=== PATIENT | female | born 1990 | race Caucasian/White ===

== ENCOUNTER 2016-07-29 12:47 | Emergency (ER) | payer MEDICAID ==
[~2016-07-29] VITALS: Ht 157.5 cm; Wt 68.0 kg
[~2016-07-29 12:47] MED LIST: DOXY100T PO; FLAG500T PO
[2016-07-29 12:49] VITALS: BP 127/72; PULSE 94; RESP 20; TEMP 98; O2SAT 98
--- NOTE | 2016-07-29 17:30 | PD ---
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 States that she had similar symptoms like this in the past and was told she had pelvic inflammatory disease. She states that she has some right lower pelvic pain that is not new, has been there since her previous surgeries. Denies any fever, chills , nausea, vomiting, diarrhea, constipation, hematuria. Denies , last menstrual period 1 week ago and she is status post tubal ligation. Abdominal surgeries include appendectomy and C-sections 2. She is sexually active with one partner but is concerned he may be unfaithful. PFSH Past Medical History Asthma: Yes Autoimmune Disease: No Blood Disorders: No Anxiety: Yes Cardiovascular Problems: No Cerebrovascular Accident: Yes (TIA) Developmental Delay: Yes (CEREBRAL PALSY) Diabetes: No Diminished Hearing: No Diverticulitis: Yes (CROHNS DISEASE) Gastrointestinal Disorders: Yes (colitis, crohns) GERD: Yes Genitourinary: Yes Kidney Stones: Yes Neurologic: Yes (mild cp) Psychiatric: Yes Respiratory: Yes (ASTHMA) Immunizations Current: Yes Ulcer: Yes Tetanus Vaccination: > 5 Years Influenza Vaccination: No ?: Not LMP: LAST WEEK Menopausal: No : 3 Para: 2 Miscarriage: 1 Past Surgical History Abdominal Surgery: Yes (laparoscopy, colonoscopy) Appendectomy: Yes Section: Yes Oral Surgery: Yes Thoracic Surgery: Yes (ECHMO) Tonsillectomy: Yes Other Surgery: Yes (ADENOIDECTOMY) Social History Alcohol Use: Yes (ocassionally) Tobacco Use: No Substance Use: No Allergies-Medications (Allergen,Severity, Reaction): Coded Allergies: Morphine (Verified Allergy, Severe, RASH, ITCHING, 07/29/16) Bactrim (Verified Allergy, Intermediate, TONGUE SWELLING, 07/29/16) Keflex (Verified Adverse Reaction, Severe, Dizziness, 07/29/16) Cipro (Verified Adverse Reaction, Intermediate, DIZZY, 07/29/16) Reported Meds & Prescriptions Reported Meds & Active Scripts Active Diflucan (Fluconazole) 150 Mg Tab 150 Mg PO ONCE Doxycycline Hyclate 100 Mg Cap 100 Mg PO BID 14 Days Review of Systems Except as stated in HPI: all other systems reviewed are Neg Physical Exam Narrative GENERAL: Well-nourished and well-developed pleasant patient in no acute distress who is nontoxic appearing. SKIN: Warm and dry. HEAD: Normocephalic and atraumatic. EYES: No injection, drainage, or hyphema noted. PERRLA. EOMI. ENT: No nasal drainage noted. Oropharynx is clear. NECK: Supple and the trachea is midline. CARDIOVASCULAR: Regular rate and rhythm. RESPIRATORY: Breath sounds are equal bilaterally with no accessory muscle use, wheezing, rhonchi, or crackles. GASTROINTESTINAL: Abdomen is soft, non-tender, and nondistended. GENITOURINARY: Normal external genitalia without lesions or erythema. Vaginal vault with yellow thick discharge. Cervical os was closed. Positive cervical motion tenderness. Uterus nontender and nonenlarged. Bilateral adnexa nontender without masses. MUSCULOSKELETAL: No obvious deformities, swelling, cyanosis, or ecchymosis is present throughout the upper and lower extremities. NEUROLOGICAL: Awake, alert, and oriented. Normal speech and gait. Cranial nerves are grossly intact. Data Data Last Documented VS Vital Signs Date Time Temp Pulse Resp B/P Pulse Ox O2 Delivery O2 Flow Rate FiO2 07/29/16 16:48 17 07/29/16 12:49 98.0 94 127/72 98 Room Air Orders Gc And Chlamydia Pcr (07/29/16 17:30) Wet Prep Profile (07/29/16 17:30) Urinalysis - C+S If Indicated (07/29/16 17:30) Ed Urine Pregnancytest Poc (07/29/16 17:30) Urine Culture (07/29/16 17:20) Azithromycin (Zithromax) (07/29/16 18:30) Doxycycline (Vibramycin) (07/29/16 18:30) Labs Laboratory Tests Test 07/29/16 17:20 Urine Color YELLOW Urine Turbidity HAZY Urine pH 6.0 Urine Specific [place] 1.024 Urine Protein TRACE mg/dL Urine Glucose (UA) NEG mg/dL Urine Ketones NEG mg/dL Urine Occult Blood TRACE Urine Nitrite NEG Urine Bilirubin NEG Urine Urobilinogen LESS THAN 2.0 MG/DL Urine Leukocyte Esterase LARGE Urine RBC 17 /hpf Urine WBC 132 /hpf Urine Squamous Epithelial 6 /hpf Cells Urine Transitional Epithelial 2 /hpf Cells Urine Renal Epithelial Cells 1 /hpf Urine Bacteria RARE /hpf Urine Mucus FEW /lpf Urine Yeast (Budding) RARE Microscopic Urinalysis Comment CULTURE INDICATED Clue Cells (Wet Prep) NONE SEEN Vaginal Trichomonas (Wet Prep) NONE SEEN Vaginal Yeast (Wet Prep) PRESENT MDM Medical Decision Making Medical Screen Exam Complete: Yes Emergency Medical Condition: Yes Differential Diagnosis Pelvic inflammatory disease versus urethritis versus cystitis versus BV Narrative Course 26-year-old female presents to the emergency department for evaluation of vaginal discharge and burning with urination. Patient is afebrile, vital signs are stable. Abdominal examination is benign. On pelvic examination she does have vaginal discharge and cervical motion tenderness. She is concerned of possible sexual transmitted infection. We'll treat the patient prophylactically for gonorrhea and chlamydia with Zithromax 1 g and doxycycline as she is allergic to Keflex. Urinalysis shows trace occult blood, large leukocyte esterase, 17 red blood cells, 132 white blood cells, rare bacteria, few mucus, rare yeast. Wet prep shows vaginal yeast. Gonorrhea and Chlamydia is pending. Patient will be prescribed doxycycline 100 mg twice daily for PID for 14 days and Diflucan for yeast. Instructed to follow-up with her PCP or monitoring manager. Patient verbalizes understanding and agreement with treatment plan. Diagnosis Primary Impression: PID (acute pelvic inflammatory disease) Additional Impression: Vaginal yeast infection Referrals: Manager Telemarketing Patient Instructions: General Instructions, Pelvic Inflammatory Disease (ED), Vulvovaginal Candidiasis (ED) Additional Instructions: Take medications as prescribed with food and a full glass of water. Follow-up with your Primary Care Physician or monitoring manager. Return to the ED for any acute worsening of symptoms. Med/Other Pt SpecificInfo: Prescription(s) given Scripts Fluconazole (Diflucan)150 Mg [id number] Mg PO ONCE #1 TAB Ref 0 Prov:Woody Wen MD 07/29/16 Doxycycline Hyclate 100 Mg [id number] Mg PO BID 14 Days Ref 0 Prov:Woody Wen MD 07/29/16 Disposition: 01 DISCHARGE HOME Condition: Stable Janet Kim Jul 29, 2016 17:30
[2016-07-29 17:52] LABS: BACTERIA, URINE RARE /hpf; BLOOD, URINE TRACE (NEG); COMMENT (UR) CULTURE INDICATED; CULTURE IF INDICATED CULTURE INDICATED; GLUCOSE,URINE NEG (NEG); KETONE, URINE NEG (NEG); MUCUS URINE FEW /lpf (OCC); NITRITE,URINE NEG (NEG); RENAL EPITHELIAL CELLS 1 /hpf; SQUAMOUS EPITHELIAL CELL URINE 6 /hpf (0-5); TRANSITIONAL EPI CELLS, URINE 2 /hpf; URINE COLOR YELLOW (YELLW/STRAW)
[2016-07-29] MEDS ORDERED: DIFL150T PO (18:19)
[2016-07-29] MEDS ORDERED: DOXY100C PO ×2 (18:19→18:32)
[2016-07-29] MEDS ORDERED: AZITHROMYCIN 250 MG TAB PO ONE (18:30)
[2016-07-29] MEDS ORDERED: DOXYCYCLINE HYCLATE 100 MG CAP PO ONE (18:30)
[2016-07-29] MEDS ORDERED: DOXY1TAB6 PO (18:33)
[2016-07-29 18:35] VITALS: BP 120/78; TEMP 98
[2016-07-29 19:34] LABS: CHLAMYDIA PCR NOT DETECTED (NOT DETECT); NEISSERIA PCR NOT DETECTED (NOT DETECT)
== END 2016-07-29 18:35 | disposition home or self-care (01) ==
LOC: NEPB 12:47
DX: N73.9 Female pelvic inflammatory disease, unspecified (principal); B96.20 Unspecified Escherichia coli [E. coli] as the cause of diseases classified elsewhere; B37.3 Candidiasis of vulva and vagina; J45.909 Unspecified asthma, uncomplicated; F41.9 Anxiety disorder, unspecified; Z86.73 Personal history of transient ischemic attack (TIA), and cerebral infarction without residual deficits; G80.9 Cerebral palsy, unspecified; K50.90 Crohn's disease, unspecified, without complications
CPT/HCPCS: 81001; 84703; 87077; 87086; 87186; 87210; 87491; 87591; 99283

== ENCOUNTER 2016-12-16 17:52 | Emergency (ER) | payer MEDICAID ==
[~2016-12-16] VITALS: Ht 160 cm; Wt 72.2 kg
[~2016-12-16 17:52] MED LIST changes: +DIFL150T PO; -DOXY100T PO; +DOXY1TAB6 PO; -FLAG500T PO
[2016-12-16 18:09] VITALS: BP 146/88; PULSE 90; RESP 20; TEMP 98.4; O2SAT 100
--- NOTE | 2016-12-16 18:52 | PD ---
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 Patient states the symptoms started 5 days ago. Patient was treated for bacterial vaginosis and yeast infection in the past. Patient states that the symptoms resolved with medications in the past. Patient states that her partner was not treated. Patient denies any headache. Patient denies any chest pain or shortness of breath. Patient states that she has low abdominal discomfort. Patient states that she has some mild cramping on the pelvic area. Patient status post tubal ligation. Patient denies any chance of being . PFSH Past Medical History Asthma: Yes Autoimmune Disease: No Blood Disorders: No Anxiety: Yes Cardiovascular Problems: No Cerebrovascular Accident: Yes (TIA) Developmental Delay: Yes (CEREBRAL PALSY) Diabetes: No Diminished Hearing: No Diverticulitis: Yes (CROHNS DISEASE) Gastrointestinal Disorders: Yes (colitis, crohns) GERD: Yes Genitourinary: Yes Kidney Stones: Yes Neurologic: Yes (mild cp) Psychiatric: Yes Respiratory: Yes (ASTHMA) Immunizations Current: Yes Ulcer: Yes ?: Not Menopausal: No : 3 Para: 2 Miscarriage: 1 Tubal Ligation: Yes Past Surgical History Abdominal Surgery: Yes (laparoscopy, colonoscopy) Appendectomy: Yes Section: Yes Oral Surgery: Yes Thoracic Surgery: Yes (ECHMO) Tonsillectomy: Yes Other Surgery: Yes (ADENOIDECTOMY) Social History Alcohol Use: Yes (daily) Tobacco Use: No Substance Use: No Allergies-Medications (Allergen,Severity, Reaction): Coded Allergies: Morphine (Verified Allergy, Severe, RASH, ITCHING, 12/16/16) Bactrim (Verified Allergy, Intermediate, TONGUE SWELLING, 12/16/16) Keflex (Verified Adverse Reaction, Severe, Dizziness, 12/16/16) Cipro (Verified Adverse Reaction, Intermediate, DIZZY, 12/16/16) Reported Meds & Prescriptions Reported Meds & Active Scripts Active No Active Prescriptions or Reported Medications Review of Systems General / Constitutional: No: Fever Eyes: No: Visual changes HENT: No: Headaches Cardiovascular: No: Chest Pain or Discomfort Respiratory: No: Shortness of Breath Gastrointestinal: No: Abdominal Pain Genitourinary: Positive: Pelvic Pain, Discharge, No: Dysuria Musculoskeletal: No: Pain Skin: No Rash Neurologic: No: Weakness Psychiatric: No: Depression Endocrine: No: Polydipsia Hematologic/Lymphatic: No: Easy Bruising Physical Exam Narrative GENERAL: Well-nourished, well-developed patient. SKIN: Focused skin assessment warm/dry. HEAD: Normocephalic. EYES: No scleral icterus. No injection or drainage. NECK: Supple, trachea midline. No JVD or lymphadenopathy. CARDIOVASCULAR: Regular rate and rhythm without murmurs, gallops, or rubs. RESPIRATORY: Breath sounds equal bilaterally. No accessory muscle use. GASTROINTESTINAL: Abdomen soft, non-tender, nondistended. MUSCULOSKELETAL: No cyanosis, or edema. BACK: Nontender without obvious deformity. No CVA tenderness. TRANSPORTATION COORDINATOR exam: Patient has small amounts whitest discharge in the vaginal vault. No cervical motion tenderness. Uterus is nonenlarged with mild tenderness on palpation. No adnexal mass or tenderness. Data Data Last Documented VS Vital Signs Date Time Temp Pulse Resp B/P Pulse Ox O2 Delivery O2 Flow Rate FiO2 12/16/16 18:09 98.4 90 20 146/88 100 Orders Gc And Chlamydia Pcr (12/16/16 18:47) Wet Prep Profile (12/16/16 18:47) Ua Includes Microscopic (12/16/16 18:47) Admit Order (Ed Use Only) (12/16/16 19:11) Labs Laboratory Tests Test 12/16/16 18:50 Urine Color YELLOW Urine Turbidity CLEAR Urine pH 6.0 Urine Specific [place] 1.015 Urine Protein NEG mg/dL Urine Glucose (UA) NEG mg/dL Urine Ketones NEG mg/dL Urine Occult Blood NEG Urine Nitrite NEG Urine Bilirubin NEG Urine Leukocyte Esterase MOD Urine RBC 0-3 /hpf Urine WBC 0-2 /hpf Urine Squamous Epithelial 0-5 /hpf Cells Clue Cells (Wet Prep) NONE SEEN Vaginal Trichomonas (Wet Prep) NONE SEEN Vaginal Yeast (Wet Prep) NONE SEEN MDM Medical Decision Making Medical Screen Exam Complete: Yes Emergency Medical Condition: Yes Interpretation(s) Wet prep negative. Differential Diagnosis Differential diagnosis including bacterial vaginosis, candidal vaginitis, cervicitis, PID. Narrative Course 26-year-old female with vaginal discharge and pelvic cramping. Diagnosis Primary Impression: Deysi vaginitis Patient Instructions: General Instructions Additional Instructions: Diflucan as directed. Follow-up with personal physician. Return call back for culture results. Return if worse. Med/Other Pt SpecificInfo: Prescription(s) given Scripts Fluconazole (Diflucan)100 Mg [id number] Mg PO DAILY #3 TAB Ref 0 Prov:Vincent Wynne MD 12/16/16 Disposition: 01 DISCHARGE HOME Condition: Stable Vincent Wynne MD Dec 16, 2016 18:52
[2016-12-16 19:00] LABS: BLOOD, URINE NEG (NEG); GLUCOSE,URINE NEG (NEG); KETONE, URINE NEG (NEG); NITRITE,URINE NEG (NEG)
[2016-12-16 19:06] LABS: URINE COLOR YELLOW (YELLW/STRAW)
[2016-12-16 19:10] LABS: RBC, URINE 0-3 /hpf (0-3); SQUAMOUS EPITHELIAL CELL URINE 0-5 /hpf (0-5); WBC, URINE 0-2 /hpf (0-5)
[2016-12-16] MEDS ORDERED: DIFL100T PO (19:20)
[2016-12-17 01:23] LABS: CHLAMYDIA PCR NOT DETECTED (NOT DETECT); NEISSERIA PCR NOT DETECTED (NOT DETECT)
== END 2016-12-16 19:30 | disposition home or self-care (01) ==
LOC: PHED 17:52 → UNDOADMIN 19:12 → PHEDA 19:12 → UNDODISIN 19:57
DX: B37.3 Candidiasis of vulva and vagina (principal); R25.2 Cramp and spasm; J45.909 Unspecified asthma, uncomplicated
CPT/HCPCS: 81001; 87210; 87491; 87591; 99284